=== PATIENT | male | born 1975 | race Caucasian/White ===

== ENCOUNTER 2023-12-27 14:00 | Emergency (ER) | payer OTHER ==
--- NOTE | 2023-12-27 14:39 | RAD REPORT ---
EXAM DESCRIPTION: RAD - Chest Single View - 12/27/2023 2:34 pm CLINICAL HISTORY: CHEST PAIN COMPARISON: <Comparisons> FINDINGS: Lines: None. Lungs: No evidence of edema or pneumonia. Pleural: No significant pleural effusions or pneumothorax. Cardiac: The heart size is within normal limits. Mediastinum: Within normal limits. Bones: No acute fractures. Other: None IMPRESSION: No acute cardiopulmonary disease.
--- NOTE | 2023-12-27 15:00 | RAD REPORT ---
EXAM DESCRIPTION: CT - Head Brain Wo Cont - 12/27/2023 2:47 pm CLINICAL HISTORY: NUMBNESS COMPARISON: No comparisons TECHNIQUE: All CT scans are performed using dose optimization technique as appropriate and may inclu de automated exposure control or mA/KV adjustment according to patient size. FINDINGS: No intracranial hemorrhage, hydrocephalus or extra-axial fluid collection.No areas of brai n edema or evidence of midline shift. The paranasal sinuses and mastoids are clear. The calvarium is intact. IMPRESSION: No acute intracranial abnormality.
[2023-12-27 15:27] LABS: Absolute Eosinophils 0.1 K/uL (0-0.5); Absolute Lymphocytes (CBC) 1.6 K/uL (0.7-4.9); Absolute Monocytes 0.5 K/uL (0.1-1.3); Absolute Neutrophil 2.2 K/uL (1.8-8.0); Basophils % 0.9 % (0-1.3); Eosinophils % 2.9 % (0-4.4); Hematocrit 39.1 % (39.6-49.0); Hemoglobin 12.5 g/dL (13.6-17.9); MCH 23.8 pg (27.0-35.0); MCHC 31.9 g/dL (32.0-36.0); MCV 74.6 fL (80-100); MPV 7.5 fL (7.6-11.3); Monocytes % 11.1 % (3.3-12.3); Neutrophils % 50.1 % (41.7-73.7); Nucleated Red Blood Cells % 0.4 % (0-0); Platelets 335 thou/uL (152-406); RBC Red Blood Cell Count 5.24 M/uL (4.33-5.43); Red Cell Distribution Width 15.3 % (12.1-15.2)
[2023-12-27 15:31] LABS: PT Prothrombin Time 14.4 SECONDS (9.5-12.5); PTT, Activated Partial Thromb 34.6 SECONDS (24.3-36.9); Protime INR 1.32
[2023-12-27 15:46] LABS: ALT/SGPT 38 U/L (16-61); AST/SGOT 18 U/L (15-37); Albumin 3.5 g/dL (3.4-5.0); Alkaline Phosphatase 72 U/L (45-117); Anion Gap 5.6 mEq/L (5.0-15.0); BUN Blood Urea Nitrogen 19 mg/dL (7-18); Bicarbonate 27 mEq/L (21-32); Bilirubin Total 0.3 mg/dL (0.2-1.0); Globulin 3.6 g/dL (2.3-3.5); Glomerular Filtration Rate 78 ml/min (=/>90); Glucose Level 121 mg/dL (74-106); Lipase 52 U/L (13-75); Potassium 3.6 mEq/L (3.5-5.1); Protein, Total 7.1 g/dL (6.4-8.2); Sodium Level 136 mEq/L (136-145); Troponin High Sensitivity 20.3 pg/mL (<58.9)
[2023-12-27 16:18] LABS: Bilirubin Direct < 0.2 mg/dL (0-0.2); Bilirubin Indirect, Calculated 0.1 mg/dL (0.2-0.8)
[2023-12-27] MEDS ORDERED: NA CHLORIDE 0.9% 1,000 ML ONE (18:10)
--- NOTE | 2023-12-27 18:37 | RAD REPORT ---
EXAM DESCRIPTION: CT - Neck Angio - 12/27/2023 6:30 pm CLINICAL HISTORY: HEADACHE COMPARISON: No comparisons TECHNIQUE: CT angiography of the neck vessels was performed with maximum intensity reformatted image s. CAROTID STENOSIS REFERENCE USING NASCET CRITERIA: Mild - <50% stenosis. Moderate - 50-69% stenosis. Severe - 70-94% stenosis. Near occlusion - 95-99% stenosis. Occluded - 100% stenosis. All CT scans are performed using dose optimization technique as appropriate and may include automated exposure control or mA/KV adjustment according to patient size. FINDINGS: A left aortic arch is identified with normal three vessel configuration of the great vesse ls. No significant flow abnormality is seen of the common carotid bilaterally. No significant stenosis is identified involving the cervical segments of both internal carotid arteri es. Normal flow is seen within both vertebral arteries. IMPRESSION: No significant flow abnormality of the neck vessels is identified.
--- NOTE | 2023-12-27 18:40 | RAD REPORT ---
EXAM DESCRIPTION: CT - Head angio - 12/27/2023 6:30 pm CLINICAL HISTORY: Dizziness;Numbness COMPARISON: Head Brain Wo Cont dated 12/27/2023 TECHNIQUE: CT angiography of the head was performed with maximum intensity reformatted images. 3D ma ximum intensity pixel (MIP) reconstructions were created All CT scans are performed using dose optimization technique as appropriate and may include automated exposure control or mA/KV adjustment according to patient size. FINDINGS: Anterior circulation: No aneurysm or large vessel occlusion. No hemodynamically significant stenosis. No arteriovenous malf ormation identified. Posterior circulation: No aneurysm or large vessel occlusion. No hemodynamically significant stenosis. No arteriovenous malf ormation identified. IMPRESSION: No significant flow abnormality is detected.
--- NOTE | 2023-12-27 18:46 | RAD REPORT ---
EXAM DESCRIPTION: CTAbdomen Pelvis W Contrast - 12/27/2023 6:30 pm CLINICAL HISTORY: ABD PAIN COMPARISON: Neck Angio dated 12/27/2023; Head angio dated 12/27/2023 TECHNIQUE: CT of the abdomen and pelvis was performed. All CT scans are performed using dose optimization technique as appropriate and may include automated exposure control or mA/KV adjustment according to patient size. FINDINGS: Lower chest: No acute abnormality. Liver: No acute abnormality or suspicious lesions. Hepatic steatosis. Biliary: No biliary ductal dilatation. Stomach: No significant focal abnormality. Duodenum: No significant focal abnormality. Pancreas: No significant abnormality. Spleen: No significant abnormality. Adrenal: No suspicious lesions. Kidney/ureter: No hydronephrosis. No renal calculi. Too small to characterize and/or benign appearing renal lesions are noted. Retroperitoneum: No retroperitoneal adenopathy. Vascular: No aneurysm. Bowel: Normal appendix .. Peritoneum: No ascites or free air. Small fat containing umbilical hernia Bladder: Grossly unremarkable. Reproductive: No adnexal masses. Bones: No acute fracture. Other: n/a IMPRESSION: No acute intra-abdominal or pelvic finding. Normal appendix.
--- NOTE | 2023-12-27 19:02 | ER ---
Nurse's Notes [facility] Name: Sergey Mccrary Jr Age: 48 yrs Sex: Male : 1975 Arrival Date: 12/27/2023 Time: 14:00 Bed 8 Private MD: Diagnosis: Essential (primary) hypertension Presentation: 12/26 14:05 Chief complaint: Patient states: SOB x2 days with worsening SOB and weakness today. as6 Coronavirus screen: At this time, the client does not indicate any symptoms associated with coronavirus-19. Ebola Screen: No symptoms or risks identified at this time. Initial Sepsis Screen: Does the patient meet any 2 criteria? No. Patient's initial sepsis screen is negative. Does the patient have a suspected source of infection? No. Patient's initial sepsis screen is negative. Risk Assessment: Do you want to hurt yourself or someone else? Patient reports no desire to harm self or others. Onset of symptoms was December 25, 2023. 14:05 Acuity: ESTHELA 2 as6 14:05 Method Of Arrival: Ambulatory as6 Historical: - Allergies: 14:03 No Known Allergies; as6 - PMHx: 14:03 PE; Hypertensive disorder; as6 - PSHx: 14:03 None; as6 - Immunization history:: Adult Immunizations up to date. - Infectious Disease History:: Denies. - Social history:: Smoking status: Patient/guardian denies using tobacco. Screenin:56 [facility] ED Fall Risk Assessment (Adult) History of falling in the last 3 months, ld1 including since admission No falls in past 3 months (0 pts). Abuse screen: Denies threats or abuse. Denies injuries from another. Nutritional screening: On. Tuberculosis screening: No symptoms or risk factors identified. Assessment: 15:54 General: Appears in no apparent distress. comfortable, Behavior is calm, cooperative, ld1 appropriate for age. Pain: Denies pain. Neuro: Level of Consciousness is awake, alert, obeys commands, Oriented to person, place, time, situation. Cardiovascular: Capillary refill < 3 seconds Patient's skin is warm and dry. Rhythm is sinus rhythm. Respiratory: Airway is patent Respiratory effort is even, unlabored, Breath sounds are clear bilaterally. GI: Abdomen is flat, non-distended. : No signs and/or symptoms were reported regarding the genitourinary system. EENT: No signs and/or symptoms were reported regarding the EENT system. Derm: No signs and/or symptoms reported regarding the dermatologic system. Musculoskeletal: No signs and/or symptoms reported regarding the musculoskeletal system. 19:07 Reassessment: Patient appears in no apparent distress at this time. Patient and/or bm8 family updated on plan of care and expected duration. Pain level reassessed. Patient is alert, oriented x 3, equal unlabored respirations, skin warm/dry/pink. Patient states feeling better. Patient states symptoms have improved. Reassessment: provider informed of pts pain , new orders recieved. Pain: Complains of pain in left upper quadrant Pain does not radiate. Pain currently is 6 out of 10 on a pain scale. Vital Signs: 14:04 BP 173 / 102; Pulse 97; Resp 20; Temp 98; Pulse Ox 100% ; Weight 106.59 kg; Pain 6/10; as6 14:07 Height 6 ft. 1 in. ; as6 15:34 BP 135 / 105; Pulse 80; Resp 18; Pulse Ox 100% on R/A; ld1 15:54 BP 146 / 97; Pulse 71; Resp 18; Pulse Ox 97% on R/A; ld1 16:47 BP 140 / 95; Pulse 71; Resp 18; Pulse Ox 99% on R/A; ld1 17:59 BP 142 / 98; Pulse 71; Resp 18; Pulse Ox 99% on R/A; ld1 19:07 BP 147 / 104; Pulse 69; Resp 20; Temp 98; Pulse Ox 99% ; Pain 6/10; bm8 14:04 Pain Scale: Adult as6 19:07 Pain Scale: Adult bm8 [place] Coma Score: 19:07 Eye Response: spontaneous(4). Motor Response: obeys commands(6). Verbal Response: bm8 oriented(5). Total: 15. ED Course: 14:01 Patient arrived in ED. im 14:04 Klaudia Bello FNP-C is PHCP. kb 14:04 Ross Tellez MD is Attending Physician. kb 14:04 Arm band placed on right wrist. as6 14:05 Triage completed. as6 14:35 Chest Single View XRAY In Process Unspecified. EDMS 14:[address] hb 14:48 CT Head Brain wo Cont In Process Unspecified. EDMS 15:15 Inserted saline lock: 20 gauge in right antecubital area, using aseptic technique. jr12 Blood collected. 15:15 EKG done, by ED staff, reviewed by Klaudia RESENDEZ. jr12 15:56 Patient has correct armband on for positive identification. Placed in gown. Bed in low ld1 position. Call light in reach. Side rails up X2. gambling monitor on. Pulse ox on. NIBP on. Door closed. Noise minimized. Warm blanket given. 15:56 No provider procedures requiring assistance completed. ld1 15:57 Rosy Huston, SIMON is Primary Nurse. ld1 18:31 CT Head Angio In Process Unspecified. EDMS 18:32 CT Neck Angio In Process Unspecified. EDMS 18:32 CT Abd/Pelvis - IV Contrast Only In Process Unspecified. EDMS 19:07 Provided Education on: post er care. bm8 19:07 Patient did not have IV access during this emergency room visit. intact, bleeding bm8 controlled, No redness/swelling at site. Pressure dressing applied. Administered Medications: 16:05 Not Given (Physician Discretion): [id number] mg IVP once ld1 18:15 Drug: NS 0.9% IV 1000 ml IV at 1000 ml once Route: IV; Rate: 1000 ml; Site: left ld1 antecubital; 19:22 Follow up: Response: No adverse reaction; IV Status: Completed infusion; IV Intake: bm8 500ml 19:21 Drug: HYDROcodone-acetaminophen PO 5 mg-325 mg 1 tabs PO once Route: PO; bm8 19:21 Follow up: Response: Medication administered at discharge. bm8 Medication: 19:07 VIS not applicable for this client. bm8 Intake: 19:22 IV: 500ml; Total: 500ml. bm8 Outcome: 19:01 Discharge ordered by MD. reeves 19:07 Discharged to home ambulatory, bm8 19:07 Condition: stable 19:07 Discharge instructions given to patient, family, Instructed on discharge instructions, follow up and referral plans. medication usage, safety practices, Demonstrated understanding of instructions, follow-up care, medications, 19:22 Patient left the ED. bm8 Signatures: Dispatcher [employer] EDUT Klaudia Bello FNP-C FNP-Ckb Baxter, Heather RN RN Rosy Huston, RN RN ld1 Darius Healy, RN RN as6 Kristina Farias [facility] Yogi Scott, RN RN bm8
--- NOTE | 2023-12-27 19:02 | EDPHYS ---
Physician Documentation [facility] Name: Sergey Mccrary Jr Age: 48 yrs Sex: Male : 1975 Arrival Date: 12/27/2023 Time: 14:00 Bed 8 Private MD: ED Physician Ross Tellez HPI: 12/26 19:34 This 48 yrs old Male presents to ER via Ambulatory with complaints of High Blood kb Pressure, Palpitations, Shortness Of Breath. 19:34 Pt is a 48 year old male who presents for hypertension. States his blood pressure has kb been high since his last visit to PCP on 12/04/23. States today he had some shortness of breath, numbness/tingling to face and bilateral upper extremities and felt weak so he wanted to get checked out. . Historical: - Allergies: 14:03 No Known Allergies; as6 - PMHx: 14:03 PE; Hypertensive disorder; as6 - PSHx: 14:03 None; as6 - Immunization history:: Adult Immunizations up to date. - Infectious Disease History:: Denies. - Social history:: Smoking status: Patient/guardian denies using tobacco. ROS: 19:32 Constitutional: As per HPI kb Exam: 16:57 Constitutional: This is a well developed, well nourished patient who is awake, alert, kb and in no acute distress. Head/Face: Normocephalic, atraumatic. Eyes: Pupils equal round and reactive to light, extra-ocular motions intact. Lids and lashes normal. Conjunctiva and sclera are non-icteric and not injected. Cornea within normal limits. Periorbital areas with no swelling, redness, or edema. ENT: Moist Mucous membranes Cardiovascular: Regular rate Respiratory: Respirations even and unlabored. No increased work of breathing. Talking in full sentences Skin: Warm, dry with normal turgor. Normal color. MS/ Extremity: Pulses equal, no cyanosis. Neurovascular intact. Full, normal range of motion. Neuro: Awake and alert, GCS 15, oriented to person, place, time, and situation. Moves all extremities. Normal gait. 16:57 ECG was reviewed by the Attending Physician. 16:57 Abdomen/GI: Inspection: abdomen appears normal, Bowel sounds: normal, Palpation: soft, in all quadrants, mild abdominal tenderness, in the left upper quadrant and left lower quadrant, Vital Signs: 14:04 BP 173 / 102; Pulse 97; Resp 20; Temp 98; Pulse Ox 100% ; Weight 106.59 kg; Pain 6/10; as6 14:07 Height 6 ft. 1 in. ; as6 15:34 BP 135 / 105; Pulse 80; Resp 18; Pulse Ox 100% on R/A; ld1 15:54 BP 146 / 97; Pulse 71; Resp 18; Pulse Ox 97% on R/A; ld1 16:47 BP 140 / 95; Pulse 71; Resp 18; Pulse Ox 99% on R/A; ld1 17:59 BP 142 / 98; Pulse 71; Resp 18; Pulse Ox 99% on R/A; ld1 19:07 BP 147 / 104; Pulse 69; Resp 20; Temp 98; Pulse Ox 99% ; Pain 6/10; bm8 14:04 Pain Scale: Adult as6 19:07 Pain Scale: Adult bm8 [place] Coma Score: 19:07 Eye Response: spontaneous(4). Motor Response: obeys commands(6). Verbal Response: bm8 oriented(5). Total: 15. MDM: 14:04 Patient medically screened. kb 19:33 Differential diagnosis: hypertensive crisis, Malignant HTN. Data reviewed: vital signs, kb nurses notes. Consideration of Admission/Observation Escalation of care including admission/observation considered. admission considered but pt has no neuro deficits, no chest pain, labs and CT scan without acute findings. Pt educated to keep blood pressure log and follow up with PCP for possible medication adjustment. Verbal understanding received. . Counseling: I had a detailed discussion with the patient and/or guardian regarding the historical points, exam findings, and any diagnostic results supporting the discharge/admit diagnosis, lab results, radiology results, the need for outpatient follow up, a family practitioner, to return to the emergency department if symptoms worsen or persist or if there are any questions or concerns that arise at home. 12/26 14:20 Order name: Basic Metabolic Panel; Complete Time: 16:22 kb 12/26 14:20 Order name: CBC with Diff; Complete Time: 15:33 kb 12/26 14:20 Order name: Hepatic Function; Complete Time: 16:22 kb 12/26 14:20 Order name: Magnesium; Complete Time: 16:22 kb 12/26 14:20 Order name: Protime (+inr); Complete Time: 15:33 kb 12/26 14:20 Order name: Ptt, Activated; Complete Time: 15:33 kb 12/26 14:20 Order name: Troponin High Sensitivity; Complete Time: 16:22 kb 12/26 14:20 Order name: Lipase; Complete Time: 16:22 kb 12/26 14:20 Order name: CT Head Brain wo Cont; Complete Time: 15:02 kb 12/26 14:20 Order name: Chest Single View XRAY; Complete Time: 14:41 kb 12/26 16:45 Order name: CT Head Angio; Complete Time: 18:44 kb 12/26 16:45 Order name: CT Neck Angio; Complete Time: 18:40 kb 12/26 16:48 Order name: CT Abd/Pelvis - IV Contrast Only; Complete Time: 18:47 kc6 12/26 14:20 Order name: EKG; Complete Time: 14:20 kb 12/26 14:20 Order name: Cardiac monitoring; Complete Time: 15:15 kb 12/26 14:20 Order name: EKG - Nurse/Tech; Complete Time: 15:15 kb 12/26 14:20 Order name: IV Saline Lock; Complete Time: 15:15 kb 12/26 14:20 Order name: Labs collected and sent; Complete Time: 15:15 kb 12/26 14:20 Order name: NPO; Complete Time: 14:51 kb 12/26 14:20 Order name: O2 Per Protocol; Complete Time: 14:51 kb 12/26 14:20 Order name: O2 Sat Monitoring; Complete Time: 14:51 kb EC:57 Rate is 74 beats/min. Rhythm is regular. QRS [place] is Normal. NV interval is normal at kb 138 msec. QRS interval is normal at 90 msec. QT interval is normal at 419 msec. Administered Medications: 16:05 Not Given (Physician Discretion): [id number] mg IVP once ld1 18:15 Drug: NS 0.9% IV 1000 ml IV at 1000 ml once Route: IV; Rate: 1000 ml; Site: left ld1 antecubital; 19:22 Follow up: Response: No adverse reaction; IV Status: Completed infusion; IV Intake: bm8 500ml 19:21 Drug: HYDROcodone-acetaminophen PO 5 mg-325 mg 1 tabs PO once Route: PO; bm8 19:21 Follow up: Response: Medication administered at discharge. bm8 Disposition: 19:57 Co-signature as Attending Physician, Ross Tellez MD I reviewed the patient's care rt provided by the Advanced Practice Provider and agree with the diagnosis and treatment plan. Disposition Summary: 12/27/23 19:01 Discharge Ordered Notes: Location: Home kb Condition: Stable kb Diagnosis - Essential (primary) hypertension kb Followup: kb - With: Emergency Department - When: As needed - Reason: Worsening of condition Followup: kb - With: Private Physician - When: 2 - 3 days - Reason: Recheck today's complaints, Continuance of care, Re-evaluation by your physician Discharge Instructions: - Discharge Summary Sheet kb - Hypertension, Adult, [id number] kb - How to Take Your Blood Pressure, [id number] kb - Managing Your Hypertension kb Forms: - Medication Reconciliation Form kb - Antibiotic Education kb - Prescription Opioid Use kb - Patient Portal Instructions kb - Leadership Thank You Letter kb Signatures: Dispatcher [employer] EDMS Klaudia Bello, SMOKING TOBACCO PACKING MACHINE HAND-C SMOKING TOBACCO PACKING MACHINE HAND-Ckb Rosy Huston, RN RN ld1 Darius Healy, SIMON RN as6 Ross Tellez MD MD rt Yogi Scott, RN RN bm8 Corrections: (The following items were deleted from the chart) 14:21 14:20 BASIC METABOLIC PANEL+C.LAB.BRZ ordered. EDMS EDMS 14:21 14:20 CBC+H.LAB.BRZ ordered. EDMS EDMS 14:21 14:20 HEPATIC FUNCTION+C.LAB.BRZ ordered. EDMS EDMS 14:21 14:20 MAGNESIUM+C.LAB.BRZ ordered. EDMS EDMS 14:21 14:20 PROTIME (+INR)+COAG.LAB.BRZ ordered. EDMS EDMS 14:21 14:20 PTT, ACTIVATED+COAG.LAB.BRZ ordered. EDMS EDMS 14:21 14:20 Troponin High Sensitivity+C.LAB.BRZ ordered. EDMS EDMS 14:21 14:20 LIPASE+C.LAB.BRZ ordered. EDMS EDMS 16:45 16:45 Head Angio+CT.RAD.BRZ ordered. EDMS EDMS 16:45 16:45 Neck Angio+CT.RAD.BRZ ordered. EDMS EDMS
[2023-12-27] MEDS ORDERED: HYDROCODONE/APAP 5/325 MG TAB ONE (19:11)
[2023-12-27 19:59] VITALS: BP 147/104; TEMP 98; O2SAT 99
--- NOTE | 2023-12-29 14:18 | EKG ---
Test Date: 2023-12-27 Test Time: 15:12:45 Field Manager: CHRISTIANA MEASUREMENT RESULTS: Intervals: Rate: 74 WI: 138 QRSD: 90 QT: 378 QTc: 419 [place]: P: 76 WI: 138 QRS: 83 T: 40 INTERPRETIVE STATEMENTS: Normal sinus rhythm Nonspecific T wave abnormality Abnormal ECG No previous ECG available for comparison Electronically Signed On 12-29-23 14:12:58 CDT by Oli Ann
== END 2023-12-27 19:22 | disposition home or self-care (01) ==
LOC: ER 14:00
DX: I10 Essential (primary) hypertension (principal); R10.32 Left lower quadrant pain; R10.12 Left upper quadrant pain
CPT/HCPCS: 93005; 85025; 80048; 36415; 83735; 85610; 80076; 85730; 84484; 83690; 70450; 70496; 70498; 74177; 71045; 96360; 99285; Q9967; J7030